=== PATIENT | female | born 1970 | race Caucasian/White ===

== ENCOUNTER → 2016-05-26 | Outpatient (CLI) | payer BC ==
--- NOTE | 2016-05-26 12:54 | REP ---
Pelvic ultrasound: History: Abnormal menstruation, abnormal menstrual bleeding. Findings: Transabdominal and transvaginal scanning are performed. Uterine dimensions are 9.5 x 4.6 x 7.9 cm. 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 Endometrium on the right measures 1.2 cm in thickness and on the left the uterine endometrium measures 1.2 cm in thickness as well. There is a left anterior myometrial fibroid measuring 1.6 x 1.6 x 1.1 cm. Normal ovaries are seen bilaterally. Right ovary measures 4.1 x 2.6 x 2.3 cm. Its resistive index by Doppler is normal at 0.53. There are two small follicles in the right ovary measuring 1.6 and 1.5 cm in diameter. The left ovary measures 2.4 x 1.3 x 1.4 cm. It has no morphologic abnormality. Doppler flow could not be ascertained from the left ovary due to less than optimal sonographic penetration. 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 1.6 cm left anterior myometrial fibroid. Signed by Armen Lovell MD 05/26/2016 03:35 P
== END ==
LOC: M RAD 10:42
PROVIDERS: ATTEND Obstetrics & Gynecology
DX: D25.9 Leiomyoma of uterus, unspecified (principal); N92.1 Excessive and frequent menstruation with irregular cycle

== ENCOUNTER → 2016-05-26 | Outpatient (CLI) | payer BC ==
[2016-05-26 13:56] LABS: FREE T4 0.99 NG/DL (0.76-1.46)
== END ==
LOC: M WUC 12:04
PROVIDERS: ATTEND Obstetrics & Gynecology
DX: N92.1 Excessive and frequent menstruation with irregular cycle (principal)

== ENCOUNTER → 2017-07-28 | Outpatient (CLI) | payer BC | LOC: M RAD 10:35 | DX: Z12.31 Encounter for screening mammogram for malignant neoplasm of breast (principal) | CPT/HCPCS: 77067 ==

== ENCOUNTER → 2018-06-08 | Outpatient (CLI) | payer BC ==
[2018-06-08 12:21] LABS: BASO % 0.3 % (0.0-1.0); EOS # 0.1 10^3/uL (0.0-0.50); EOS % 1.5 % (0.0-3.0); HEMATOCRIT 41.3 % (36.0-47.0); HEMOGLOBIN 13.8 g/dl (12.0-15.5); LYMPH # 1.2 10^3/uL (1.5-4.5); LYMPH % 20.8 % (24.0-44.0); MEAN CORPUSCULAR HEMOGLOBIN 28.3 pg (27.0-33.0); MEAN CORPUSCULAR HGB CONC 33.4 g/dl (32.0-36.5); MEAN CORPUSCULAR VOLUME 84.8 fl (80.0-96.0); MONO # 0.7 10^3/uL (0.0-0.8); MONO % 11.7 % (0.0-5.0); NEUTROPHILS # 3.9 10^3/uL (1.8-7.7); NEUTROPHILS % 65.5 % (36.0-66.0); PLATELET COUNT, AUTOMATED 249 10^3/uL (150-450); RED BLOOD COUNT 4.87 10^6/uL (4.00-5.40); WHITE BLOOD COUNT 5.9 10^3/uL (4.0-10.0)
[2018-06-08 12:43] LABS: CHOLESTEROL RISK RATIO 3.787 (<5); FREE T4 1.13 NG/DL (0.76-1.46); THYROID STIMULATING HORMONE 1.95 uIU/ML (0.358-3.740)
== END ==
LOC: M WUC 10:48
PROVIDERS: ATTEND Obstetrics & Gynecology
DX: Z01.419 Encounter for gynecological examination (general) (routine) without abnormal findings (principal)

== ENCOUNTER → 2018-08-03 | Outpatient (CLI) | payer BC ==
--- NOTE | 2018-08-03 10:19 | REPMRS ---
Patient History The patient states she had a clinical breast exam in May 2018. Patient is nulliparous. No known family history of cancer. 3D TOMOSYNTHESIS WAS PERFORMED. Digital Mammo Screening Bilat: August 03, 2018 - Exam #: [id number] Bilateral CC and MLO view(s) were taken. Technologist: Chelsey Ramos, Technologist Prior study comparison: July 28, 2017, bilateral digital mammo screening bilat performed at [facility]. July 14, 2016, bilateral digital mammo screening bilat performed at [facility]. FINDINGS: The breast tissue is heterogeneously dense. This may lower the sensitivity of mammography. There has been no change in the appearance of the mammogram from the prior studies. There is a moderate amount of residual fibroglandular tissue which is fairly symmetric. There is no interval development of dominant mass, areas of architectural distortion, or clustered microcalcification typical of malignancy. Assessment: BI-RADS/ACR category 1 mammogram. Negative Mammogram. Recommendation Routine screening mammogram in 1 year (for women over age 40). This mammogram was interpreted with the aid of an FDA-approved computer-aided dectection system. Electronically Signed By: Alexandre Brambila MD 08/03/18 1018
== END ==
LOC: M RAD 08:38
PROVIDERS: ATTEND Obstetrics & Gynecology
DX: Z12.31 Encounter for screening mammogram for malignant neoplasm of breast (principal)

== ENCOUNTER 2019-09-25 09:37 | Emergency (ER) | payer BC ==
[~2019-09-25] VITALS: Ht 162.6 cm; Wt 65.9 kg
[2019-09-25 09:37] VITALS: BP 135/82
[2019-09-25] MEDS ORDERED: OMEP40CA97 PO (10:25)
--- NOTE | 2019-09-25 10:30 | REP ---
Clinical: Possible foreign body. Technique: AP and lateral soft tissue neck radiographs (three total views). Findings: Moderate multilevel degenerative changes to the cervical spine noted. The surrounding soft tissues are unremarkable including normal appearance to the esophageal silhouette/prevertebral soft tissues. No abnormal focal emphysema or foreign body identified. Impression: Moderate multilevel degenerative spondylosis. No obvious foreign body. Electronically Signed by Bryan Rocha MD 09/25/2019 10:22 A
[2019-10-04] MEDS ORDERED: HYDR1SOL PO (09:25)
== END 2019-09-25 10:30 | disposition home or self-care (01) ==
LOC: M ED 09:37
DX: R09.89 Other specified symptoms and signs involving the circulatory and respiratory systems (principal)

== ENCOUNTER 2019-10-04 10:51 | Day surgery (SDC) | payer BC ==
[~2019-10-04] VITALS: Ht 162.6 cm; Wt 65.4 kg
[~2019-10-04 10:51] MED LIST: HYDR1SOL PO; LR 1,000 ML IV ONE; OMEP40CA97 PO
--- NOTE | 2019-10-04 11:31 | ECGEPIP ---
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
[2019-10-04] MEDS ORDERED: LIDOCAINE 2% 100MG/5ML SDV (FOR ANES.) As Ordered ONE (12:02)
[2019-10-04] MEDS ORDERED: ROCURONIUM BROMIDE 50 MG/5 ML VIAL As Ordered ONE (12:02)
[2019-10-04] MEDS ORDERED: propofoL 200 MG/20 ML VIAL As Ordered ONE (12:02)
[2019-10-04] MEDS ORDERED: MIDAZOLAM INJ 2MG/2ML VIAL (J2250 PER 1MG) As Ordered ONE (12:03)
[2019-10-04] MEDS ORDERED: fentaNYL 100 MCG/2 ML INJECTION (J3010) As Ordered ONE (12:03)
[2019-10-04] MEDS ORDERED: CETACAINE SPRAY 5GM As Ordered ONE (13:15)
[2019-10-04] MEDS ORDERED: METHYLENE BLUE 0.5% (5MG/ML) 10 ML AMP (PROVAYBLUE) As Ordered ONE (13:16)
[2019-10-04] MEDS ORDERED: EPINEPHrine 1MG/ML INJ 30ML MD-VIAL As Ordered ONE (13:16)
[2019-10-04] MEDS ORDERED: ONDANSETRON 4MG/2ML VIAL As Ordered ONE (13:37)
[2019-10-04] MEDS ORDERED: dexameTHASONE 4 MG/ML 1ML VIAL (J1100 PER 1MG) As Ordered ONE (13:37)
[2019-10-04] MEDS ORDERED: SUGAMMADEX SODIUM 500 MG/5 ML VIAL (BRIDION) As Ordered ONE (13:38)
[2019-10-04] MEDS ORDERED: HYDROcodone/APAP LIQUID 7.5-325MG 15ML UDC (LORTAB ELIXIR) PO PRN (14:15)
[2019-10-04] MEDS ORDERED: fentaNYL 100 MCG/2 ML INJECTION (J3010) IV PRN (14:15)
[2019-10-04] MEDS ORDERED: LR 1,000 ML IV SCH (14:15)
[2019-10-04] MEDS ORDERED: MEPERIDINE INJ 25 MG/ML VIAL (J2175) IV PRN (14:15)
[2019-10-04] MEDS ORDERED: ONDANSETRON 4MG/2ML VIAL IV PRN (14:15)
[2019-10-04] MEDS ORDERED: PERCOCET 5MG/325MG TAB PO PRN (14:15)
[2019-10-04] MEDS ORDERED: METOCLOPRAMIDE INJ 10MG/2ML VIAL (J2765 PER 1) IV PRN (14:15)
[2019-10-04 15:15] VITALS: BP 139/80
== END 2019-10-04 15:38 | disposition home or self-care (01) ==
LOC: M SDC 10:51
PROVIDERS: ATTEND Specialist
DX: J38.7 Other diseases of larynx (principal)
CPT/HCPCS: 31541; 81025; 93005; J1100; J2250; J2405; J3010; Q9968; U0002

== ENCOUNTER → 2020-10-22 | Outpatient (CLI) | payer BC ==
[~2020-10-22] MED LIST changes: -LR 1,000 ML IV ONE; +OMEP40CA4 PO; -OMEP40CA97 PO
[2020-10-22 16:31] LABS: BILIRUBIN,TOTAL 0.7 MG/DL (0.2-1.0); CALCIUM LEVEL 9.2 MG/DL (8.5-10.1); CHOLESTEROL RISK RATIO 4.15 (<5); CREATININE FOR GFR 1.05 MG/DL (0.55-1.30); GLOMERULAR FILTRATION RATE 58.6 (>51); POTASSIUM SERUM 4.4 MEQ/L (3.5-5.1); TOTAL PROTEIN 6.9 GM/DL (6.4-8.2)
== END ==
LOC: M WUC 14:36
PROVIDERS: ATTEND Nurse Practitioner Family
DX: E78.00 Pure hypercholesterolemia, unspecified (principal)

== ENCOUNTER → 2021-02-04 | Outpatient (CLI) | payer BC ==
--- NOTE | 2021-02-04 10:13 | REPMRS ---
Patient History Patient is postmenopausal and is nulliparous. No known family history of cancer. No Hormone Replacement Therapy Tomosynthesis is performed. Volpara breast density is b. Tyrer-Cuzick lifetime risk of breast cancer 10.8%. Patient states no breast complaints today. Patient has signed MRS History Sheet. Digital Woman Screen Mammo: February 04, 2021 - Exam #: [id number] Bilateral CC and MLO view(s) were taken. Technologist: Jewell Wilkins, Hydraulic Spinner Prior study comparison: August 03, 2018, bilateral digital mammo screening bilat, performed at . July 28, 2017, bilateral digital mammo screening bilat, performed at . FINDINGS: The breast tissue is heterogeneously dense. This may lower the sensitivity of mammography. There has been no change in the appearance of the mammogram from the prior studies. There is a moderate amount of residual fibroglandular tissue which is fairly symmetric. There is no interval development of dominant mass, areas of architectural distortion, or clustered microcalcification typical of malignancy. Assessment: BI-RADS/ACR category 1 mammogram. Negative Mammogram. Recommendation Routine screening mammogram in 1 year (for women over age 40). This mammogram was interpreted with the aid of an FDA-approved computer-aided dectection system. Electronically Signed By: Alexandre Brambila MD 02/04/21 1013
== END ==
LOC: M WHC 09:16
PROVIDERS: ATTEND Obstetrics & Gynecology
DX: Z12.31 Encounter for screening mammogram for malignant neoplasm of breast (principal)

== ENCOUNTER → 2022-01-07 | Outpatient (CLI) | payer OTHER ==
[2022-01-07 17:21] LABS: HEMATOCRIT 44.8 % (36.0-47.0); HEMOGLOBIN 14.4 g/dl (12.0-15.5); MEAN CORPUSCULAR HEMOGLOBIN 29.2 pg (27.0-33.0); MEAN CORPUSCULAR HGB CONC 32.1 g/dl (32.0-36.5); MEAN CORPUSCULAR VOLUME 90.9 fl (80.0-96.0); PLATELET COUNT, AUTOMATED 217 10^3/uL (150-450); RED BLOOD COUNT 4.93 10^6/uL (4.00-5.40); WHITE BLOOD COUNT 6.4 10^3/uL (4.0-10.0)
[2022-01-07 17:57] LABS: ALBUMIN 4.2 GM/DL (3.2-5.2); BILIRUBIN,TOTAL 0.9 MG/DL (0.2-1.0); CALCIUM LEVEL 9.5 MG/DL (8.5-10.1); CHOLESTEROL RISK RATIO 4.211 (<5); CREATININE FOR GFR 1.11 MG/DL (0.55-1.30); FREE T4 1.09 NG/DL (0.76-1.46); GLOMERULAR FILTRATION RATE 54.7 (>51); POTASSIUM SERUM 4.4 MEQ/L (3.5-5.1); THYROID STIMULATING HORMONE 2.25 uIU/ML (0.358-3.740); TOTAL PROTEIN 7.3 GM/DL (6.4-8.2)
== END ==
LOC: M WUC 11:15
PROVIDERS: ATTEND Physician Assistant Medical
DX: R74.8 Abnormal levels of other serum enzymes (principal); E78.2 Mixed hyperlipidemia; R79.9 Abnormal finding of blood chemistry, unspecified; Z83.49 Family history of other endocrine, nutritional and metabolic diseases; Z13.29 Encounter for screening for other suspected endocrine disorder

== ENCOUNTER → 2022-02-24 | Outpatient (REF) | payer OTHER | LOC: M PLALAB 10:12 | PROVIDERS: ATTEND Obstetrics & Gynecology | DX: Z12.4 Encounter for screening for malignant neoplasm of cervix (principal); R87.619 Unspecified abnormal cytological findings in specimens from cervix uteri | CPT/HCPCS: 87624; G0123 ==

== ENCOUNTER → 2022-03-03 | Outpatient (CLI) | payer OTHER | LOC: M WHC 07:49 | PROVIDERS: ATTEND Obstetrics & Gynecology | DX: Z12.31 Encounter for screening mammogram for malignant neoplasm of breast (principal) ==

== ENCOUNTER → 2023-01-26 | Outpatient (CLI) | payer OTHER ==
[2023-01-26 17:53] LABS: HEMATOCRIT 42.9 % (36.0-47.0); HEMOGLOBIN 14.2 g/dl (12.0-15.5); MEAN CORPUSCULAR HGB CONC 33.1 g/dl (32.0-36.5); MEAN CORPUSCULAR VOLUME 90.5 fl (80.0-96.0); PLATELET COUNT, AUTOMATED 267 10^3/uL (150-450); RED BLOOD COUNT 4.74 10^6/uL (4.00-5.40); WHITE BLOOD COUNT 5.6 10^3/uL (4.0-10.0)
[2023-01-26 17:55] LABS: ALKALINE PHOSPHATASE 45 U/L (46-116); ALT/SGPT 16 U/L (7.0-40); AST/SGOT 14 U/L (<34); BILIRUBIN,TOTAL 0.7 MG/DL (0.3-1.2); BLOOD UREA NITROGEN 12 MG/DL (9-23); CALCIUM LEVEL 9.3 MG/DL (8.5-10.1); CARBON DIOXIDE LEVEL 28 MMOL/L (20-31); CHLORIDE LEVEL 105 MMOL/L (98-107); CHOLESTEROL LEVEL 212 MG/DL (<200); CHOLESTEROL RISK RATIO 4.56 (<5); FREE T4 1.03 NG/DL (0.89-1.76); GLOMERULAR FILTRATION RATE > 60.0 (>51); GLUCOSE, FASTING 95 MG/DL (60-100); HDL CHOLESTEROL 46.4 MG/DL (>40); NON-HDL-C 165.6 MG/DL; SODIUM LEVEL 140 MMOL/L (136-145); THYROID STIMULATING HORMONE 2.915 uIU/ML (0.55-4.78); TOTAL PROTEIN 6.8 G/DL (5.7-8.2); TRIGLYCERIDES LEVEL 178 MG/DL (<150)
== END ==
LOC: M WUC 11:22
PROVIDERS: ATTEND Physician Assistant Medical
DX: R63.5 Abnormal weight gain (principal); E78.2 Mixed hyperlipidemia; R73.09 Other abnormal glucose

== ENCOUNTER → 2023-05-11 | Outpatient (CLI) | payer BC | LOC: M WHC 12:35 | PROVIDERS: ATTEND Obstetrics & Gynecology | DX: Z12.31 Encounter for screening mammogram for malignant neoplasm of breast (principal) ==

== ENCOUNTER → 2024-03-07 | Outpatient (CLI) | payer BC ==
[2024-03-07 16:42] LABS: HEMATOCRIT 42.3 % (36.0-47.0); HEMOGLOBIN 13.8 g/dl (12.0-15.5); MEAN CORPUSCULAR HEMOGLOBIN 29.2 pg (27.0-33.0); MEAN CORPUSCULAR HGB CONC 32.6 g/dl (32.0-36.5); MEAN CORPUSCULAR VOLUME 89.4 fl (80.0-96.0); PLATELET COUNT, AUTOMATED 273 10^3/uL (150-450); RED BLOOD COUNT 4.73 10^6/uL (4.00-5.40); WHITE BLOOD COUNT 8.4 10^3/uL (4.0-10.0)
[2024-03-07 17:00] LABS: HEMOGLOBIN A1c 5.5 % (4.0-6.0)
[2024-03-07 17:06] LABS: ALBUMIN 4.1 G/DL (3.2-5.2); BILIRUBIN,TOTAL 0.6 MG/DL (0.3-1.2); CALCIUM LEVEL 10.2 MG/DL (8.5-10.1); CHOLESTEROL RISK RATIO 4.5 (<5); CREATININE FOR GFR 1.17 MG/DL (0.55-1.30); GLOMERULAR FILTRATION RATE 51.1 (>51); HDL CHOLESTEROL 48.2 MG/DL (>40); NON-HDL-C 168.8 MG/DL; POTASSIUM SERUM 4.1 MMOL/L (3.5-5.1); TOTAL PROTEIN 6.9 G/DL (5.7-8.2)
[2024-03-07 17:07] LABS: FREE T4 1.35 NG/DL (0.89-1.76)
[2024-03-07 17:08] LABS: THYROID STIMULATING HORMONE 3.064 uIU/ML (0.55-4.78)
== END ==
LOC: M WUC 11:53
PROVIDERS: ATTEND Physician Assistant Medical
DX: R73.09 Other abnormal glucose (principal); R63.5 Abnormal weight gain; E78.2 Mixed hyperlipidemia; R71.8 Other abnormality of red blood cells